=== PATIENT | male | born 1955 | race Caucasian/White ===

== ENCOUNTER 2023-04-03 07:54 | Day surgery (SDC) | payer MEDICARE ==
[2023-03-28 12:14] LABS: BASOPHILS # (AUTO) 0.1 X10'3 (0-0.2); BASOPHILS % (AUTO) 1.2 % (0-1); EOSINOPHILS # (AUTO) 0.1 X10'3 (0-0.9); EOSINOPHILS % (AUTO) 1.3 % (0-6); HEMATOCRIT 45.4 % (42.0-52.0); HEMOGLOBIN 15.5 g/dl (14.0-17.9); LYMPHOCYTES # (AUTO) 1.3 X10'3 (1.1-4.8); LYMPHOCYTES % (AUTO) 24.3 % (21-51); MEAN CORPUSCULAR HEMOGLOBIN 32.2 PG (27.0-31.0); MEAN CORPUSCULAR HGB CONC 34.1 g/dL (33.0-36.5); MEAN CORPUSCULAR VOLUME 94.3 FL (78-98); MEAN PLATELET VOLUME 6.9 FL (7.4-10.4); MONOCYTES # (AUTO) 0.5 X10'3 (0-0.9); MONOCYTES % (AUTO) 8.9 % (2-12); NEUTROPHILS # (AUTO) 3.5 X10'3 (1.8-7.7); NEUTROPHILS % (AUTO) 64.3 % (42-75); PLATELET COUNT 234 X10'3 (140-440); RED BLOOD COUNT 4.81 X10'6 (4.70-6.10); RED CELL DISTRIBUTION WIDTH 13.5 % (11.5-14.5); WHITE BLOOD COUNT 5.5 X10'3 (4.5-11.0)
[2023-03-28 12:28] LABS: APTT 30 SECONDS (22-32)
[2023-03-28 12:30] LABS: ALANINE AMINOTRANSFERASE 33 U/L (12-78); ALBUMIN 3.9 G/DL (3.4-5.0); ALKALINE PHOSPHATASE 70 IU/L (46-116); ANION GAP 10 (8-16); ASPARTATE AMINO TRANSFERASE 18 U/L (10-37); BILIRUBIN,TOTAL 0.5 MG/DL (0.1-1.0); BLOOD UREA NITROGEN 29 MG/DL (7-18); BUN/CREATININE RATIO 15.6 (10.0-20.0); CALCIUM 9.2 MG/DL (8.5-10.1); CHLORIDE 105 MMOL/L (99-107); CREATININE 1.86 MG/DL (0.60-1.10); GLUCOSE 177 MG/DL (70-104); POTASSIUM 4.3 MMOL/L (3.5-5.1); SODIUM 139 MMOL/L (135-145); TOTAL CARBON DIOXIDE 23.6 MMOL/L (24-32); TOTAL PROTEIN 7.8 G/DL (6.4-8.2); eGFR 36 ML/MIN
[~2023-04-03] VITALS: Ht 175.3 cm; Wt 97.2 kg
[2023-04-03] VITALS (12 sets, daily range): BP systolic 113–197; BP diastolic 72–99; PULSE 67–78; RESP 14–17; TEMP 98.4; O2SAT 94–98
[2023-04-03] MEDS ORDERED: LORazepam 0.5 MG tablet PO PRN (08:15)
[2023-04-03] MEDS ORDERED: glucagon, human recombinant 1mg kit SUBCUT PRN (08:15)
[2023-04-03] MEDS ORDERED: dextrose 50%-water 50ml dispensing syringe IV PRN ×2 (08:15)
[2023-04-03] MEDS ORDERED: nitroGLYCERIN 0.4mg SUBLingual tab SL PRN ×2 (08:15→11:05)
[2023-04-03] MEDS ORDERED: normal saline 1,000 ML IV SCH (08:15)
[2023-04-03] MEDS ORDERED: insulin Lispro (HumaLOG) vial - multi-dose SQ SCH (08:15)
[2023-04-03] MEDS ORDERED: DEXTROSE 15 GM of carb/4 tabs (each vial/BOTTLE has 4 tablets) PO PRN ×2 (08:15)
[2023-04-03] MEDS ORDERED: diphenhydrAMINE 25mg capsule PO PRN (08:15)
[2023-04-03] MEDS ORDERED: MESSAGE TO PHARMACY PO ONE (08:15)
[2023-04-03] MEDS ORDERED: LOSA100T58 (08:29)
[2023-04-03] MEDS ORDERED: TRIA1TAB3 (08:29)
[2023-04-03] MEDS ORDERED: liothyronine PO (08:29)
[2023-04-03] MEDS ORDERED: OMEG-5 PO (08:30)
[2023-04-03] MEDS ORDERED: TEST5GEL2 TOP (08:31)
[2023-04-03] MEDS ORDERED: IBUP-24 PO (08:32)
[2023-04-03] MEDS ORDERED: VITA-321 (08:33)
[2023-04-03] MEDS ORDERED: iohexol 350 MG/ML 50ML vial IV ONE (09:15)
[2023-04-03] MEDS ORDERED: LIDOcaine 1% 30ml preserv. free vial ONE (09:15)
[2023-04-03] MEDS ORDERED: midazolam 1 mg/ML 2ml injection ONE (09:15)
[2023-04-03] MEDS ORDERED: fentaNYL/PF 50MCG/1 ML 2ML syringe ONE (09:15)
[2023-04-03] MEDS ORDERED: iohexol 350MG/ML 100ml bottle IV ONE (09:15)
[2023-04-03] MEDS ORDERED: ondansetron/PF 4mg/2ml inj IV PRN (11:05)
[2023-04-03] MEDS ORDERED: OXAZEpam 15mg capsule PO PRN (11:05)
[2023-04-03] MEDS ORDERED: normal saline 1000ml 1,000 ML IV SCH (11:05)
[2023-04-03] MEDS ORDERED: proCHLORperazine 10 MG/2 ml inj IV PRN (11:05)
[2023-04-03] MEDS ORDERED: HYDROcodone/acetaminophen 5mg/325mg tablet PO PRN (11:05)
[2023-04-03] MEDS ORDERED: HYDROcodone/acetaminophen 10/325mg tab PO PRN (11:05)
[2023-04-03] MEDS ORDERED: insulin glargine (Lantus) pen - multi-dose SQ SCH (21:00)
== END 2023-04-03 16:30 | disposition home or self-care (01) ==
LOC: SSTAY O 07:54
PROVIDERS: ATTEND Internal Medicine Cardiovascular Disease
DX: R94.39 Abnormal result of other cardiovascular function study (principal); I25.10 Atherosclerotic heart disease of native coronary artery without angina pectoris; E78.5 Hyperlipidemia, unspecified; I10 Essential (primary) hypertension; E03.9 Hypothyroidism, unspecified; E66.9 Obesity, unspecified; Z68.31 Body mass index [BMI] 31.0-31.9, adult; E11.42 Type 2 diabetes mellitus with diabetic polyneuropathy; Z88.0 Allergy status to penicillin; Z88.8 Allergy status to other drugs, medicaments and biological substances; Z79.899 Other long term (current) drug therapy; Z79.01 Long term (current) use of anticoagulants
CPT/HCPCS: 36415; 71046; 80053; 82948; 85025; 85610; 85730; 93005; 93458; 99152; A6258; J1644; J1815; J2250; J3010; J3490; J7030; Q0163; Q9967; 99153; A6402; C1760